=== PATIENT | female | born 1970 | race Caucasian/White ===

== ENCOUNTER 2020-07-27 23:48 | Inpatient (IN) | payer OTHER ==
[2020-07-28 00:01] VITALS: BMI 21.9
[2020-07-28] MEDS ORDERED: LACTATED RINGERS SOLUTION 1000 ML INFUS.BAG IV ONE ×2 (00:10→04:49)
[2020-07-28] MEDS ORDERED: ONDANSETRON 4 MG/2 ML VIAL IVPUSH ONE (00:15)
[2020-07-28] MEDS ORDERED: FAMOTIDINE 20 MG/50 ML IVPB 20 MG/50 ML MG IVPB ONE ×2 (00:15→00:20)
[2020-07-28] MEDS ORDERED: ONDANSETRON 4 MG/2 ML VIAL ONE (00:20)
[2020-07-28 00:36] LABS: BASO % 0.6 % (0-2.0); EOS % 0.4 % (0-4.5); HEMATOCRIT 39.2 % (32.4-45.2); HEMOGLOBIN 12.7 GM/dL (10.7-15.3); LYMPH % 34.4 % (8-40); MCH 27.7 pg (25.7-33.7); MCHC 32.4 g/dl (32.0-36.0); MEAN CELL VOLUME 85.5 fl (80-96); MEAN PLT VOLUME 10.3 fl (7.5-11.1); MONO % 14.9 % (3.8-10.2); NEUT % 49.7 % (42.8-82.8); PLATELET COUNT 147 K/MM3 (134-434); RBC 4.58 M/mm3 (3.60-5.2); RDW 15.3 % (11.6-15.6); WHITE BLOOD COUNT 2.3 K/mm3 (4.0-10.0)
[2020-07-28 00:45] LABS: CHLORIDE 106 mmol/L (98-107); POTASSIUM 3.8 mmol/L (3.5-5.1); SODIUM 140 mmol/L (136-145)
[2020-07-28 00:47] LABS: CALCIUM 8.4 mg/dL (8.5-10.1)
[2020-07-28 00:48] LABS: ALBUMIN 3.4 g/dl (3.4-5.0); ANION GAP 12 MMOL/L (8-16); BLOOD UREA NITROGEN 10.2 mg/dL (7-18); CO2 22 mmol/L (21-32); GLUCOSE,RANDOM 109 mg/dL (74-106); LIPASE 143 U/L (73-393); MAGNESIUM 1.6 mg/dL (1.8-2.4)
[2020-07-28 00:51] LABS: CREATININE 0.5 mg/dL (0.55-1.3); SGOT/AST 16 U/L (15-37); SGPT/ALT 20 U/L (13-61)
[2020-07-28 00:52] LABS: BILIRUBIN,TOTAL 0.2 mg/dL (0.2-1)
[2020-07-28 00:54] LABS: ALK PHOS 74 U/L (45-117)
[2020-07-28] MEDS ORDERED: METOCLOPRAMIDE HCL INJECTION 10 MG/2 ML VIAL IVPB ONE (00:58)
[2020-07-28] MEDS ORDERED: METOCLOPRAMIDE HCL INJECTION 10 MG/2 ML VIAL ONE (01:24)
[2020-07-28 01:57] LABS: LDH 171 U/L (84-246)
[2020-07-28 02:33] LABS: VENOUS BASE EXCESS -0.5 mmol/L (-2-2); VENOUS O2 SATURATION 88.4 % (70-80); VENOUS PCO2 43.8 mmHg (38-52); VENOUS PH 7.373 (7.310-7.410)
[2020-07-28 02:40] LABS: BILIRUBIN,DIRECT 0.1 mg/dL (0.0-0.2)
[2020-07-28] MEDS ORDERED: CEFTRIAXONE 1 GM in DEXTROSE 5%-WATER - 100 ML IVPB ONE (04:49)
[2020-07-28] MEDS ORDERED: AZITHROMYCIN IVPB 500 MG in DEXTROSE 5%-WATER - 250 ML IVPB ONE (04:49)
[2020-07-28] MEDS ORDERED: ACETAMINOPHEN 1000 MG/100 ML VIAL (NON FORMULARY) IVPB ONE (04:49)
[2020-07-28] MEDS ORDERED: AZITHROMYCIN IVPB 500 MG/250 ML BAG IVPB ONE (05:05)
[2020-07-28] MEDS ORDERED: ACETAMINOPHEN INJECTION 100 ML IVPB ONE (05:05)
[2020-07-28] MEDS ORDERED: CEFTRIAXONE 1 GM/50 ML BAG ONE (05:05)
[2020-07-28] MEDS ORDERED: MAG HYDROX/AL HYDROX/SIMETH 30 ML UNIT-DOSE CUP PO PRN (07:09)
[2020-07-28] MEDS ORDERED: ACETAMINOPHEN 1000 MG/100 ML VIAL (NON FORMULARY) IVPB PRN (07:09)
[2020-07-28] MEDS ORDERED: ONDANSETRON 4 MG/2 ML VIAL IVPUSH PRN (07:10)
[2020-07-28] MEDS ORDERED: CYCLOBENZAPRINE HCL 5 MG TABLET PO PRN (07:11)
[2020-07-28] MEDS ORDERED: SODIUM CHLORIDE 1,000 ML IV SCH (07:15)
[2020-07-28] MEDS ORDERED: LIDOCAINE 5% TOPICAL PATCH TP PRN (10:00)
[2020-07-28] MEDS ORDERED: AZITHROMYCIN IVPB 500 MG in DEXTROSE 5%-WATER - 250 ML IVPB SCH (10:00)
[2020-07-28] MEDS ORDERED: CEFTRIAXONE 1 GM in DEXTROSE 5%-WATER - 50 ML IVPB SCH (10:00)
[2020-07-28] MEDS ORDERED: PANTOPRAZOLE SODIUM 40 MG/100 ML BAG IVPB ONE (10:24)
[2020-07-28] MEDS: INSULIN SLIDING SCALE (NOVOLOG) 1 VIAL SQ SCH ×3 (10:46→21:36)
[2020-07-28] MEDS: PANTOPRAZOLE SODIUM 40 MG VIAL IVPUSH SCH ×2 (11:34→21:32)
[2020-07-28] MEDS: ZINC SULFATE 220 MG CAPSULE (FP) PO SCH (11:34)
[2020-07-28] MEDS: ASCORBIC ACID 250 MG TABLET (FP) PO SCH (11:34)
[2020-07-28] MEDS: ACETAMINOPHEN 500 MG TABLET (FP) PO PRN ×2 (13:19→21:32)
[2020-07-28] MEDS: CHOLECALCIFEROL (VIT D3) 400 UNIT (10 MCG) TABLET PO SCH (13:20)
[2020-07-28 14:35] LABS: URINE APPEARANCE CLOUDY; URINE BILIRUBIN NEGATIVE (NEGATIVE); URINE COLOR YELLOW; URINE GLUCOSE (UA) 3+ (NEGATIVE); URINE KETONE NEGATIVE (NEGATIVE); URINE LEUK ESTERASE NEGATIVE (NEGATIVE); URINE NITRITE NEGATIVE (NEGATIVE); URINE PROTEIN NEGATIVE (NEGATIVE); URINE UROBILINOGEN 0.2 mg/dL (0.2-1.0)
[2020-07-28] MEDS: DEXAMETHASONE 4 MG TABLET (FP) PO SCH (16:14)
[2020-07-28] MEDS: LIDOCAINE PATCH REMOVAL MC SCH (21:36)
[2020-07-29] MEDS: INSULIN SLIDING SCALE (NOVOLOG) 1 VIAL SQ SCH ×4 (07:01→21:32)
[2020-07-29 09:29] LABS: BASO % 0.5 % (0-2.0); HEMATOCRIT 38.7 % (32.4-45.2); HEMOGLOBIN 12.9 GM/dL (10.7-15.3); LYMPH % 58.5 % (8-40); MCHC 33.3 g/dl (32.0-36.0); MEAN CELL VOLUME 84.2 fl (80-96); MEAN PLT VOLUME 9.6 fl (7.5-11.1); MONO % 13.2 % (3.8-10.2); NEUT % 27.8 % (42.8-82.8); PLATELET COUNT 158 K/MM3 (134-434); RDW 15.3 % (11.6-15.6)
[2020-07-29 09:57] LABS: WHITE BLOOD COUNT 1.6 K/mm3 (4.0-10.0)
[2020-07-29 10:01] LABS: POTASSIUM 3.7 mmol/L (3.5-5.1)
[2020-07-29] MEDS ORDERED: cefTRIAXone SODIUM 1 GM VIAL ONE (10:02)
[2020-07-29] MEDS ORDERED: DEXTROSE 5%-WATER - 50 ML IVPB ONE (10:02)
[2020-07-29] MEDS: DEXAMETHASONE 4 MG TABLET (FP) PO SCH (10:04)
[2020-07-29] MEDS: CHOLECALCIFEROL (VIT D3) 400 UNIT (10 MCG) TABLET PO SCH (10:05)
[2020-07-29] MEDS: LISINOPRIL 5 MG TABLET PO SCH (10:05)
[2020-07-29] MEDS: ATORVASTATIN CA 20 MG TABLET (FP) PO SCH (10:05)
[2020-07-29] MEDS: ZINC SULFATE 220 MG CAPSULE (FP) PO SCH (10:05)
[2020-07-29] MEDS: AZITHROMYCIN IVPB 500 MG/250 ML BAG IVPB SCH (10:13)
[2020-07-29] MEDS: PANTOPRAZOLE SODIUM 40 MG VIAL IVPUSH SCH ×2 (10:13→21:33)
[2020-07-29 10:15] LABS: ALBUMIN 3.3 g/dl (3.4-5.0)
[2020-07-29 10:16] LABS: BLOOD UREA NITROGEN 9.8 mg/dL (7-18)
[2020-07-29 10:17] LABS: CALCIUM 8.6 mg/dL (8.5-10.1); MAGNESIUM 1.9 mg/dL (1.8-2.4)
[2020-07-29 10:18] LABS: CREATININE 0.6 mg/dL (0.55-1.3); PHOSPHOROUS 3.3 mg/dL (2.5-4.9)
[2020-07-29 10:19] LABS: BILIRUBIN,TOTAL 0.3 mg/dL (0.2-1)
[2020-07-29 10:34] LABS: ANISOCYTOSIS 1+; MACROCYTOSIS 0; PLATELET ESTIMATE NORMAL
[2020-07-29] MEDS: DULoxetine HCL 20 MG CAPSULE.DR PO SCH ×2 (12:53→22:50)
[2020-07-29] MEDS: CEFTRIAXONE 1 GM in DEXTROSE 5%-WATER - 50 ML IVPB SCH (12:53)
[2020-07-29] MEDS: ASCORBIC ACID 250 MG TABLET (FP) PO SCH (12:54)
[2020-07-29] MEDS: LIDOCAINE PATCH REMOVAL MC SCH (22:50)
[2020-07-30] MEDS: INSULIN SLIDING SCALE (NOVOLOG) 1 VIAL SQ SCH ×2 (06:51→10:49)
[2020-07-30 09:12] LABS: BASO % 0.2 % (0-2.0); EOS % 0.1 % (0-4.5); HEMATOCRIT 42.1 % (32.4-45.2); LYMPH % 53.4 % (8-40); MCH 28.1 pg (25.7-33.7); MCHC 33.2 g/dl (32.0-36.0); MEAN CELL VOLUME 84.6 fl (80-96); MEAN PLT VOLUME 10.1 fl (7.5-11.1); MONO % 12.1 % (3.8-10.2); NEUT % 34.2 % (42.8-82.8); PLATELET COUNT 176 K/MM3 (134-434); RBC 4.98 M/mm3 (3.60-5.2); RDW 15.1 % (11.6-15.6)
[2020-07-30 09:29] LABS: CHLORIDE 105 mmol/L (98-107); POTASSIUM 4.2 mmol/L (3.5-5.1); SODIUM 141 mmol/L (136-145)
[2020-07-30 10:04] LABS: ALBUMIN 3.3 g/dl (3.4-5.0); CALCIUM 8.7 mg/dL (8.5-10.1)
[2020-07-30 10:05] LABS: ANION GAP 9 MMOL/L (8-16); BLOOD UREA NITROGEN 17.6 mg/dL (7-18); CO2 27 mmol/L (21-32); GLUCOSE,RANDOM 118 mg/dL (74-106); MAGNESIUM 2.3 mg/dL (1.8-2.4)
[2020-07-30 10:07] LABS: SGPT/ALT 31 U/L (13-61)
[2020-07-30 10:08] LABS: CREATININE 0.6 mg/dL (0.55-1.3); PHOSPHOROUS 3.1 mg/dL (2.5-4.9); SGOT/AST 28 U/L (15-37)
[2020-07-30 10:09] LABS: BILIRUBIN,TOTAL 0.5 mg/dL (0.2-1); LDH 173 U/L (84-246)
[2020-07-30 10:10] LABS: ALK PHOS 73 U/L (45-117)
[2020-07-30] MEDS ORDERED: cefTRIAXone SODIUM 1 GM VIAL ONE (10:14)
[2020-07-30] MEDS ORDERED: DEXTROSE 5%-WATER - 50 ML IVPB ONE (10:14)
[2020-07-30] MEDS ORDERED: PT OWN MED DRAWER 7, Y5N ONE (10:15)
[2020-07-30] MEDS: PANTOPRAZOLE SODIUM 40 MG VIAL IVPUSH SCH (10:49)
[2020-07-30] MEDS: ZINC SULFATE 220 MG CAPSULE (FP) PO SCH (10:49)
[2020-07-30] MEDS: CHOLECALCIFEROL (VIT D3) 400 UNIT (10 MCG) TABLET PO SCH (10:49)
[2020-07-30] MEDS: DEXAMETHASONE 4 MG TABLET (FP) PO SCH (10:49)
[2020-07-30] MEDS: ATORVASTATIN CA 20 MG TABLET (FP) PO SCH (10:49)
[2020-07-30] MEDS: ASCORBIC ACID 250 MG TABLET (FP) PO SCH (10:49)
[2020-07-30] MEDS: CEFTRIAXONE 1 GM in DEXTROSE 5%-WATER - 50 ML IVPB SCH (10:49)
[2020-07-30] MEDS: LISINOPRIL 5 MG TABLET PO SCH (10:49)
[2020-07-30] MEDS: AZITHROMYCIN IVPB 500 MG/250 ML BAG IVPB SCH (10:49)
[2020-07-30] MEDS: DULoxetine HCL 20 MG CAPSULE.DR PO SCH (10:49)
[2020-07-30 10:53] LABS: ERYTHROCYTE SEDIMENTATION RATE 12 mm/hr (0-30)
[2020-07-30 14:24] VITALS: BP 111/74; PULSE 93; TEMP 99.1
== END 2020-07-30 18:10 | disposition home or self-care (01) | DRG 177 ==
LOC: JER 23:48 → JERBED 07-28 05:10 → J6S 07-28 11:55
PROVIDERS: ADMIT Hospitalist; ATTEND Internal Medicine
DX: U07.1 COVID-19 (principal); J12.82 Pneumonia due to coronavirus disease 2019; K92.0 Hematemesis; E86.9 Volume depletion, unspecified; I10 Essential (primary) hypertension; E78.5 Hyperlipidemia, unspecified; E11.9 Type 2 diabetes mellitus without complications; K21.9 Gastro-esophageal reflux disease without esophagitis; M54.9 Dorsalgia, unspecified; R07.89 Other chest pain; R00.0 Tachycardia, unspecified; D72.819 Decreased white blood cell count, unspecified; R10.9 Unspecified abdominal pain
CPT/HCPCS: 36415; 71045-TC-FY; 71250-TC; 74176-TC; 80053; 81003; 82248; 82550; 82728; 82803; 82962; 83605; 83615; 83690; 83735; 84100; 84484; 84703; 85025; 85379; 85651; 86140; 87040; 87086; 87899; 93005; 93010; 97116-GP; 97161-GP; 99285-25; C9803; J0131; U0003